=== PATIENT | male | born 1975 | race Caucasian/White ===

== ENCOUNTER 2016-10-03 10:24 | Emergency (ER) | payer OTHER ==
[~2016-10-03] VITALS: Ht 195.6 cm; Wt 145.6 kg
[~2016-10-03 10:24] MED LIST: BENTYL20 MG PO; FLAG500 PO; MIRALAX17 GM PO; NEXIUM40 M1 PO; ZOFRAN4 M1 PO
[2016-10-03 10:30] VITALS: BP 129/85
--- NOTE | 2016-10-03 10:46 | ED NECK/BACK PAIN COMPLAINT ---
History of Present Illness General Chief Complaint: Low Back Pain/Injury Stated Complaint: BACK PAIN Source: patient, family Exam Limitations: no limitations Vital Signs & Intake/Output Vital Signs & Intake/Output Vital Signs Date Time Temp Pulse Resp B/P B/P Pulse O2 O2 Flow FiO2 Mean Ox Delivery Rate 10/03 1038 96 10/03 1030 97.4 87 20 129/85 98 Room Air Allergies Coded Allergies: Sulfa (Sulfonamide Antibiotics) (UNKNOWN 10/03/16) Reconcile Medications Esomeprazole (Nexium) 40 MG CAPSULE.DR 1 CAP PO DAILY GI (Reported) Metformin HCl (Metformin HCl ER) 500 MG TAB.ER.24H 1 TAB PO BID DM (Reported) Methocarbamol (Robaxin) 500 MG TABLET 1 TAB PO TID PRN muscle strain Methylprednisolone. (Medrol) 4 MG TAB.DS.PK 1 DP PO AD back pain 6 on day 1 then reduce by one tablet daily until gone Oxycodone HCl/Acetaminophen (Percocet 5-325 MG Tablet) 5 MG-325 MG TABLET 1 TAB PO BID PRN pain Triage Note: PT TO ED C/O LEFT LOWER BACK PAIN. STATES HE WAS HELPING A FRIEND MOVE ON SATURDAY. PAIN STARTED SATURDAY AND HAS GOTTEN WORSE. HAS BEEN USING ICE, HEAT AND ALEVE WITH NO RELIEF. PAIN SOMETIMES RADIATES DOWN LEFT LEG. H/O HERNAITED DISKS 2007. Triage Nurses Notes Reviewed? yes Onset: Gradual Duration: day(s): (3) Timing: remote history Quality/Severity: moderate Location: lumbar spine, paraspinous muscles Radiation: buttocks, upper legs Context: lifting, turning/bending Method of Injury: twisted Loss of Consciousness: no loss of consciousness HPI: Patient is a 40-year-old male presenting to the emergency department with chief complaint of left lower back pain has been going on for the past 3 days. Pain is worse with range of motion and movement. He reports intermittent radiation of the pain into the left buttock region. No numbness or tingling. Positive muscle spasms. He reports that is helping his friend move this weekend and inserted afterwards. No specific falls. Denies any abdominal pain. No urinary frequency urgency or dysuria. No hematuria. No history kidney stones. Denies any nausea or vomiting. No fevers or chills. Has been taking Aleve with little relief. No urinary incontinence or retention. (ROSEANN SALDANA) Past History Travel History Traveled to [place] past 21 day No Medical History Any Pertinent Medical History? 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 No (ROSEANN SALDANA) Review of Systems Review of Systems Constitutional: Reports: no symptoms. Comments Review of systems: See HPI, All other systems negative. Constitutional, no chills fever or weight loss HEENT: No visual changes no sore throat no congestion Cardiovascular: No chest pain ,palpitation Skin, no jaundice no rashes Respiratory: No dyspnea cough sputum or hemoptysis GI: No nausea no vomiting : No dysuria No hematuria Muscle skeletal: no neck pain, Neurologic: no confusion Psych: No stress anxiety or depression,. Heme/endocrine: No bruising no bleeding no polyuria or polydipsia Immunology: No splenectomy or history of AIDS (ROSEANN SALDANA) Physical Exam Physical Exam General Appearance: well developed/nourished, no apparent distress, alert, awake , comfortable Neck: normal inspection, supple, full range of motion, normal alignment Comments: Well-developed well-nourished person in no acute distress HEENT: Nose is atraumatic. Neck: Supple, no lymphadenopathy, normal range of motion without pain or tenderness, no c spine tenderness Back: Tender to palpation in the left lumbar paraspinal region. Limited range of motion secondary to pain especially with forward flexion, back extension. Negative modify straight leg raise bilaterally. Cardiovascular: Regular rate and rhythms no murmurs rubs or gallops, normal JVP Respiratory: No respiratory distress. Lungs cta bilaterally. Abdomen: Soft, nontender nondistended, no appreciable organomegaly. Normal bowel sounds. No ascites Extremity: No edema, full range of motion of upper and lower ext without difficulty or pain. Neuro: Alert oriented x3, motor sensory normal, patellar reflexes are 2 plus bilaterally. Skin: No appreciable rash on exposed skin, skin is warm and dry. Psych: Mood and affect is normal, memory and judgment is normal. (ROSEANN SALDANA) Progress Differential Diagnosis: herniated disc, myofascial strain, pyelo/UTI, sciatica Plan of Care: Current Medications Sig/Alicia Start time Last Medication Dose Stop Time Status Admin Ketorolac 60 MG ONCE ONE 10/03 1100 AC Tromethamine 10/03 110 (Toradol) Methocarbamol 500 MG ONCE ONE 10/03 1100 AC (Robaxin) 10/03 1101 Comments: Patient medicated with Robaxin and I am Toradol. Patient will be treated symptomatically. Likely muscle strain. Patient was educated on signs and symptoms to return. Neurovascularly intact. No indication for imaging at this time. If symptoms persist patient may need MRI. (ROSEANN SALDANA) Departure Departure Time of Disposition: 1055 Disposition: HOME OR SELF CARE Condition: Stable Clinical Impression Primary Impression: Back pain Qualifiers: Back pain location: low back pain Chronicity: unspecified Back pain laterality: left Sciatica presence: with sciatica Sciatica laterality: sciatica laterality unspecified Qualified Code: M54.42 - Lumbago with sciatica, left side Referrals: JESSICA HEATON,JOAQUIN REGALADO MD,MELISSA Phillips (PCP/Family) Additional Instructions: follow up with neurosurgery call to make appt. take robaxin, medrol dose pack and percocet as prescribed. avoid heavy lifting. return for worsening symptoms or concerns. Departure Forms: Customer Survey General Discharge Information Prescriptions: Current Visit Scripts Methocarbamol (Robaxin) 1 TAB PO TID PRN muscle strain #10 TAB Methylprednisolone. (Medrol) 1 DP PO AD #1 DP 6 on day 1 then reduce by one tablet daily until gone Oxycodone HCl/Acetaminophen (Percocet 5-325 MG Tablet) 1 TAB PO BID PRN pain #10 TAB (ROSEANN SALDANA) PA/DISTRICT ADMINISTRATIVE ASSISTANT Co-Sign Statement Statement: ED Attending supervision documentation- [] I saw and evaluated the patient. I have also reviewed all the pertinent lab results and diagnostic results. I agree with the findings and the plan of care as documented in the PA's/DISTRICT ADMINISTRATIVE ASSISTANT's documentation. [X] I have reviewed the ED Record and agree with the PA's/DISTRICT ADMINISTRATIVE ASSISTANT's documentation. [] Additions or exceptions (if any) to the PAs/DISTRICT ADMINISTRATIVE ASSISTANT's note and plan are summarized below: [] (AMNA MARCUM DO)
[2016-10-03] MEDS ORDERED: PERCOCET 5-3251 EACH PO (10:59)
[2016-10-03] MEDS ORDERED: MEDROL4 M2 PO (10:59)
[2016-10-03] MEDS ORDERED: ROBAXIN500 M1 PO (10:59)
[2016-10-03] MEDS ORDERED: METFORMIN HCL500 M4 PO (11:01)
== END 2016-10-03 11:14 ==
LOC: ERH 10:24
DX: M54.5 Low back pain (principal)
CPT/HCPCS: 96372; J1885